=== PATIENT | female | born 1955 | race Caucasian/White ===

== ENCOUNTER 2025-01-29 22:43 | Emergency (ER) | payer MEDICARE, OTHER, SELFPAY ==
[2025-01-29 22:52] VITALS: BP 157/91
[2025-01-29 22:53] VITALS: BP 157/91
[2025-01-29 23:00] VITALS: BP 148/83
[2025-01-29] MEDS: ADENOCARD 6 MG IV (23:00)
[2025-01-29 23:03] LABS: % Basophils 0.8 % (0-2); % Eosinophils 2.3 % (0-6); % Immature Granulocytes 0.1 % (0-0.5); % Lymphocytes 36.6 % (20.5-51.1); % Monocytes 7.8 % (1.7-9.3); % Neutrophils 52.4 % (42.2-75.2); Absolute Basophils 0.1 10^3/uL (0-0.2); Absolute Eosinophils 0.2 10^3/uL (0-0.7); Absolute Lymphocytes 3.3 10^3/uL (1.2-3.4); Absolute Monocytes 0.7 10^3/uL (0.1-0.6); Absolute Neutrophils 4.7 10^3/uL (1.4-6.5); Hematocrit 42.1 % (37.0-47.0); Mean Corp Hgb Conc. 33.3 g/dL (33.0-37.0); Mean Corpuscular Hgb 31.2 pg (27.0-31.0); Mean Corpuscular Volume 93.8 fL (81.0-99.0); Mean Platelet Volume 11.5 fL (7.4-10.4); Nucleated Red Blood Cells % 0 %; Platelet Count 194 10^3/uL (130-400); Red Blood Cell Count 4.49 10^6/uL (4.20-5.40); Red Cell Dist. Width 14.6 % (11.5-14.5); White Blood Cell Count 8.9 10^3/uL (4.8-10.8)
[2025-01-29 23:20] LABS: ALT (SGPT) 19 U/L (0-35); AST (SGOT) 23 U/L (14-36); Albumin 4.8 g/dl (3.5-5.0); Alkaline Phosphatase 78 U/L (38-126); Blood Urea Nitrogen 26 mg/dl (7-17); Calcium 9.4 mg/dl (8.4-10.2); Carbon Dioxide 25 mmol/L (22-30); Chloride 109 mmol/L (98-107); Glucose 126 mg/dl (70-99); Potassium 3.9 mmol/L (3.5-5.1); Sodium 142 mmol/L (135-145); Total Bilirubin 0.6 mg/dl (0.2-1.3); eGFR > 60.00
[2025-01-29 23:22] LABS: D-Dimer 0.33 ug/mlFEU (0.00-0.50)
[2025-01-29 23:31] VITALS: BMI 26.7
[2025-01-29 23:48] LABS: TSH Reflex To Free T4 4.53 uIU/ml (0.47-4.68)
--- NOTE | 2025-01-30 00:01 | ED.GENMED ---
History of Present Illness
General
Chief Complaint: Heart Rate Problem
Source: patient and spouse
Exam Limitations: none
Time Seen by Provider: 01/29/25 22:50
Nursing documentation reviewed up to this point in time: agreed with
History of Present Illness
History of Present Illness:
This is a 69-year-old woman who has no significant past medical history presents with palpitations that began this evening perhaps 3 or so hours ago. Palpitations described as a sense that her heart is beating somewhat rapidly but no other
associated symptoms. She denies chest pain, no shortness of breath, no dizziness nor lightheadedness, no cough no fever, no abdominal pain, no nausea no vomiting, no diarrhea or constipation.
No history of similar episodes in the past.
Prior to this evening she had been feeling well and has been exercising on a regular basis in fact was riding her e-bike today.
She does admit to moderate stress over the past year after her older son committed suicide March 2024. She has also been worrying about her younger son who currently lives with her and has been going through tough time recently.
[facility] and [facility]. Other than this, denies lengthy air nor car travel. She denies leg pain or swelling.
She takes no medicines on a daily basis save for nighttime magnesium and also takes lorazepam on a rare occasion. She did take two 0.25 mg lorazepam this evening initially thinking that palpitations was anxiety in nature.
She denies drug use. Admits to very rare alcohol use and admits to consuming 1 alcoholic drink with dinner tonight.
She denies significant caffeine use.
Past History
Past History
ED Past Medical History: None
ED Past Surgical History: Gynecological (Benign breast biopsy)
Social History
Tobacco: Non-smoker
Alcohol: Occasional (Rare alcohol use)
Drug: None
Personal:
Living: with family
Employment: Retired (Patient volunteers at the [employer])
Family History
Family History: Other (Noncontributory)
Phy Exam
Physical Exam
Physical Exam:
GENERAL: 69-year-old woman appears her stated age, bright and alert, pleasant, appears in no acute distress. is accompanying.
EYE: pupils equal. anicteric
NECK: Supple, nontender, no meningismus, no significant adenopathy. No JVD.
ENT: oral mucosa is moist. No rhinorrhea.
CARDIAC: Regular rhythm, tachycardic at 150. no murmur.
LUNGS: Clear breath sounds bilaterally, no acute respiratory distress, no wheezes/rales/rhonchi
ABDOMEN: Soft, nondistended, without focal tenderness
NEUROLOGICAL: Alert and oriented x3, no focal neuro deficits.
SKIN: Warm and dry, normal color, skin intact. No rash. Well-perfused.
MUSCULOSKELETAL: No C/C/E. peripheral pulses are full and equal b/l. No palpable tenderness.
PSYCH: Normal and appropriate interaction. Briefly tearful when mentioning her son who from suicide last year. Good insight and judgment.
Course
Orders/Labs/Results
Orders:
Orders
01/29/25 22:44
ECG [Electrocardiogram (*1)] Urgent
Reason for Study: Tachycardia
EKG- Treatment ONCE
01/29/25 22:57
Complete Blood Count/With Diff Urgent
Comprehensive Metabolic Panel Urgent
TSH Reflex To Free T4 Urgent
Adenosine [Adenocard] 6 mg .ROUTE .STK-MED ONE
01/29/25 22:59
Adenosine [Adenocard] 6 mg IV NOW STA
01/29/25 23:01
Electrocardiogram (*1) Urgent
Reason for Study: Tachycardia
EKG- Treatment ONCE
01/29/25 23:03
D-Dimer Urgent
Abnormal Lab Results
01/29/25
22:57
MCH 31.2 H pg
(27.0-31.0)
RDW 14.6 H %
(11.5-14.5)
MPV 11.5 H fL
(7.4-10.4)
Absolute Monos (auto) 0.7 H 10^3/uL
(0.1-0.6)
Chloride 109 H mmol/L
(98-107)
BUN 26 H mg/dl
(7-17)
Glucose 126 H mg/dl
(70-99)
01/29/25 22:57
01/29/25 22:57
Vital Signs
Initial and Last Documented VS:
Initial Vital Signs
Pulse Resp BP Pulse Ox
159 23 157/91 98
01/29/25 22:52 01/29/25 22:52 01/29/25 22:52 01/29/25 22:52
Last Documented Vital Signs
Pulse Resp BP Pulse Ox
104 18 148/83 96
01/29/25 23:15 01/29/25 23:15 01/29/25 23:00 01/29/25 23:15
MDM/Problems Addressed
Differential Diagnosis Includes:
Patient presents with palpitations that began this evening and EKG shows SVT at a rate of 150.
Concern for SVT versus A-fib.
Overall well in appearance and is hemodynamically stable.
Denies chest pain and there is no evidence of significant ischemia on EKG.
She reports air travel to and from [place] few weeks ago thus PE as cause for tachycardia is a consideration however less likely as patient has had no dyspnea on exertion, no shortness of breath and in fact was exercising without
symptomatology earlier today.
Will trial an IV dose of adenosine 6 mg and if ineffective then 12 mg.
Will check labs including D-dimer.
At this point no indication for imaging.
*Pulse Oximetry
Patient hypoxic: no
*EKG
Interpreted by ED Provider?: Yes
Interpretation: abnormal
Comparison EKG: no comparison EKG present
Rate: tachycardiac
Rhythm: SVT
[place]: normal axis
Interval: normal QT interval
QRS Pattern: normal QRS
Ischemia: non-specific ST changes
*Personal Chef Interpretation
Rate: tachycardiac
Interpretation: abnormal
Rhythm: SVT
*Critical Care Note
Total Time (30-74mins, 75-104mins- exclusive of procedures): 20
comment:
Critical care statement: A total of 20 minutes of critical care time was provided for this patient. This includes management of unstable vital signs, evaluation of the patient at bedside, reviewing the patient's pertinent medical records, discussion
with consultants, review of old EKGs and review of pertinent medical records. This time with separate from time utilized to perform the aforementioned documented procedures
Update Note
Update Note:
23:15
After 6 mg of IV adenosine, SVT has not converted to sinus tachycardia. Initially at 130 bpm, slowly improving to 105 to 110 bpm.
Repeat EKG shows sinus tachycardia at 108 otherwise unremarkable.
Patient remains hemodynamically stable and is feeling well. Palpitations have resolved.
Labs are pending.
Will continue color television console monitor.
00:25
Labs are unremarkable including normal D-dimer, normal TSH. Very minimally elevated BUN of 26 with normal creatinine 0.6.
Patient remains comfortable and monitor continues to show normal sinus rhythm.
Will discharge to home with plan for follow-up with cardiology.
Discussed importance of staying well-hydrated on a daily basis. Avoid caffeinated beverages, avoid alcoholic beverages.
Return precautions discussed.
Of note, patient also requesting referral to a acid cleaner in this area. She has been provided with MEDICAL REVIEW COORDINATOR on-call, [place] [facility], Dr. Barrow's contact information.
ED Attending Note
-
Portions of this chart may have been created with voice recognition software.� Occasional wrong word or��sound alike� substitutions may have occurred due to the inherent limitations of voice recognition software.
Discharge Plan
Departure
Patient Disposition: Home (Routine Discharge)
Date of Disposition: 01/30/25
Time of Disposition: 00:30
Patient with high blood pressure during this ER visit?: No
Condition: Good
Discharge Problem:
New onset SVT
Instructions: Supraventricular tachycardia (SVT)
Prescriptions:
No Action
No Current Medications
ondansetron HCl 4 MG tablet
4 mg PO Q8HPRN PRN (Reason: nausea) Qty: 6 0RF
cephalexin 500 mg capsule
500 mg PO BID 7 Days Qty: 14 0RF
Referrals:
Miguelito Last, [Active] - Call in 1-3 days for appt
UNKNOWN,NO INTERVIEW [Family Provider] -
Amara Barrow MD [Active] -
Interventions
Interventions:
*Risk Screen - Suicide Last Done: 01/29/25 22:54
*General Assessment Last Done: 01/29/25 22:54
*Neglect/Abuse Screening Last Done: 01/29/25 22:54
*ED- Fall Risk Assessment Last Done: 01/29/25 23:10
*ED COVID-19 Vaccine History Last Done: 01/29/25 23:10
ED- Cardiac Assessment Last Done: 01/29/25 23:10
ED- Pulmonary Assessment Last Done: 01/29/25 23:10
Discharge Date and Time
Print Language: DIVEHI
[2025-01-30 00:40] VITALS: BP 130/54
== END 2025-01-30 01:00 | disposition home or self-care (01) ==
LOC: EMR 22:43
PROVIDERS: EMERGENCY PHYSICIAN Emergency Medicine
DX: I47.10 Supraventricular tachycardia, unspecified (principal)
CPT/HCPCS: 99284; 96374; 80053; 84443; 85025; 85379; 93005; J0153

== ENCOUNTER → 2025-05-19 10:11 | Outpatient (REF) | payer MEDICARE, OTHER, SELFPAY | LOC: RCS 10:11 | PROVIDERS: ATTENDING PHYSICIAN Nuclear Medicine Nuclear Cardiology; FAMILY PHYSICIAN Family Medicine | DX: R00.2 Palpitations (principal); I47.10 Supraventricular tachycardia, unspecified; R55 Syncope and collapse; R42 Dizziness and giddiness | CPT/HCPCS: 93306 ==

== ENCOUNTER → 2025-05-24 12:54 | Outpatient (REF) | payer MEDICARE, OTHER, SELFPAY | LOC: RCS 12:54 | PROVIDERS: ATTENDING PHYSICIAN Nuclear Medicine Nuclear Cardiology; FAMILY PHYSICIAN Family Medicine | DX: R00.2 Palpitations (principal); I47.10 Supraventricular tachycardia, unspecified; R55 Syncope and collapse; R42 Dizziness and giddiness | CPT/HCPCS: 93017; 93350 ==

== ENCOUNTER 2025-06-11 13:37 | Emergency (ER) | payer MEDICARE, OTHER, SELFPAY ==
[2025-06-11 13:42] VITALS: BP 125/86
[2025-06-11 15:16] VITALS: BMI 26.7
[2025-06-11 15:21] VITALS: BP 126/65
--- NOTE | 2025-06-11 15:49 | ED.MUSCINJ ---
HPI-Injury
General
Chief Complaint: Musculo-Skeletal Complaint
Source: patient
Exam Limitations: none
Time Seen by Provider: 06/11/25 14:36
Nursing documentation reviewed up to this point in time: agreed with
History of Present Illness-Injury
Is this injury a work related problem?: No
Is pt an associate of [facility]?: No
Initial Injury comments:
Patient to ED with complaint of pain and swelling to right calf. States she tripped and fell onto her right knee on Thursday. Pain and swelling started after that. To ED accompanied by spouse.
Past History
Past History
ED Past Medical History: None
ED Past Surgical History: Gynecological (Benign breast biopsy)
Social History
Tobacco: Non-smoker
Alcohol: Occasional (Rare alcohol use)
Drug: None
Personal:
Living: with family
Employment: Retired (Patient volunteers at the [employer])
Family History
Family History: Other (Noncontributory)
Review of Systems
Review of Systems
Allergies reviewed?: Yes
All Other Systems: ROS reviewed and negative except as documented in HPI and ROS
Constitutional: Reports no symptoms
EENT: Reports no symptoms
Respiratory: Reports no symptoms
Cardiac: Reports no symptoms
ABD/GI: Reports no symptoms
: Reports no symptoms
Musculoskeletal: Reports other (pain and swelling to right calf)
Skin: Reports no symptoms
Neurological: Reports no symptoms
Psychiatric: Reports no symptoms
Musculoskeletal Injury Exam
Musculoskeletal Injury Exam
Right Knee:
Pain with Movement?: None
Tender to palpation?: None
Soft tissue swelling?: Mild
External deformity and angulation?: None
Joint effusion?: None
Contusion?: Moderate
Hematoma-local bleeding into tissue?: Mild
Strain- Sprain- Tear (Connective tissue injury)?: None
Crepitus with movement?: No
Joint instability?: No
Malalignment/deformity?: No
Range of motion: Full
Distal skin color and temperature: normal-warm & good color
Capillary Refill: normal
Normal distal neurovascular exam?: Yes
Peripheral Pulses: posterior tibial (right): 3+ and dorsalis pedis (right): 3+
Right Calf:
Pain with Movement?: Moderate
Tender to palpation?: Moderate
Soft tissue swelling?: Moderate
External deformity and angulation?: None
Joint effusion?: None
Contusion?: None
Hematoma-local bleeding into tissue?: None
Strain- Sprain- Tear (Connective tissue injury)?: None
Crepitus with movement?: No
Joint instability?: No
Malalignment/deformity?: No
Range of motion: Full
Distal skin color and temperature: normal-warm & good color
Capillary Refill: normal
Normal distal neurovascular exam?: Yes
Phy Exam
General Physical Exam
General Presentation: well appearing and no apparent distress
General age: appears stated age
General Skin: warm and dry
General Habitus: normal
General Mental: alert
Musculoskeletal Exam
Musculoskeletal Exam: full ROM and neuro vasc intact
Skin Exam
Skin Exam: normal color, warm/dry and no rash
Psychiatric Exam
Psychiatric Exam: normal mood/affect
Injury Course
Orders/Labs/Results
Orders:
Orders
06/11/25 13:44
US Periph Venous LOWER Ext RT Urgent
Comment:
Reason For Exam: pain, swelling
*Radiology
Radiology exam reviewed: radiology read reviewed
*Pulse Oximetry
SaO2: 99
Oxygen Mode of Delivery: Room air
Patient hypoxic: no
*Critical Care Note
Total Time (30-74mins, 75-104mins- exclusive of procedures): Not Applicable
Update Note
Update Note:
Patient to ED with complaint of tereso and swelling to right calf. SHe fell onto right knee on Thursday. Bruising noted over patella, no pain to palation. Full ROM to knee joint. Pain to calf. NO erythema. Neurovasc. intact. US neg for DVT.
+ruptured bakers cyst. discssed findings with her Will discharge home, instructed on comfort measures. Will follow up with PCP
ED Attending Note
-
Portions of this chart may have been created with voice recognition software.� Occasional wrong word or��sound alike� substitutions may have occurred due to the inherent limitations of voice recognition software.
Discharge Plan
Departure
Patient Disposition: Home (Routine Discharge)
Date of Disposition: 06/11/25
Time of Disposition: 15:47
Patient with high blood pressure during this ER visit?: No
Condition: Good
Covid-19: Not Applicable
Discharge Problem:
Ruptured Bakers cyst
Instructions: Lu's Cyst (DC), Ibuprofen, Using Cold for Pain
Prescriptions:
No Action
No Current Medications
ondansetron HCl 4 MG tablet
4 mg PO Q8HPRN PRN (Reason: nausea) Qty: 6 0RF
cephalexin 500 mg capsule
500 mg PO BID 7 Days Qty: 14 0RF
Referrals:
Gurdeep Jones MD [Family Provider, Family Practice]
Interventions
Interventions:
*Risk Screen - Suicide Last Done: 06/11/25 13:44
*General Assessment Last Done: 06/11/25 13:44
*Neglect/Abuse Screening Last Done: 06/11/25 13:44
*ED- Fall Risk Assessment Last Done: 06/11/25 15:16
*ED COVID-19 Vaccine History Last Done: 06/11/25 13:44
*ED Influenza Vaccine History Last Done: 06/11/25 13:44
ED-Musculoskeletal Assessment Last Done: 06/11/25 15:26
Discharge Date and Time
Print Language: SPANISH
== END 2025-06-11 15:55 | disposition home or self-care (01) ==
LOC: EMR 13:37
PROVIDERS: EMERGENCY PHYSICIAN Student in an Organized Health Care Education/Training Program; FAMILY PHYSICIAN Family Medicine
DX: M66.0 Rupture of popliteal cyst (principal); R22.41 Localized swelling, mass and lump, right lower limb
CPT/HCPCS: 99283; 93971